=== PATIENT | female | born 1965 | race Two or more races ===

== ENCOUNTER 2022-04-14 15:25 | Outpatient (REF) | payer BC, SELFPAY ==
[2022-04-19 06:23] LABS: HPV mRNA E6/E7 Not Detected (Not Detected)
== END 2022-04-14 15:26 | disposition home or self-care (01) ==
LOC: HO.LNP 15:25
PROVIDERS: Visit Provider Internal Medicine
DX: Z01.419 Encounter for gynecological examination (general) (routine) without abnormal findings (principal); E03.9 Hypothyroidism, unspecified; K13.70 Unspecified lesions of oral mucosa
CPT/HCPCS: 87624; 88142

== ENCOUNTER 2023-01-02 10:54 | Outpatient (AMB) | payer BC, SELFPAY ==
[2023-01-02 11:20] VITALS: BP 110/68; PULSE 86; O2SAT 98; BMI 24.7
--- NOTE | 2023-01-02 11:20 | A.OFFPC_ITS ---
Vital Signs 01/02/23 11:20 Height 5 ft 1 in Weight 131 lb BMI 24.7 BP 110/68 Blood Pressure Location Rt brachial Position Sitting Pulse 86 Pulse Source Pulse Oximeter Pulse Oximetry (%) 98 Oxygen Delivery Method Room Air Intake Visit Reasons: Joint Pains Intake Note: Pt is here today for a sick visit. Pt c/o join pain that is getting worst. Allergies vancomycin Allergy (Severe, Verified 01/02/23 11:23) Rash clindamycin Allergy (Verified 01/02/23 11:23) rash meperidine [From Demerol] Allergy (Verified 01/02/23 11:23) twitching percocet Allergy (Uncoded 01/02/23 11:23) nausea Medication List - Last Reconciled 01/02/23 by Dinorah Dennison MD levothyroxine 50 mcg PO DAILY Tobacco use date assessed: 01/02/23 Dental Screening Dental Screen Date: 01/02/23 Did you have a dental visit in the last 12 months?: Yes Did you have a dental problem in the last 6 months where you did not have access to dental care?: No Was dental information given to patient?: Patient has dentist HPI Joint Pains HPI Details Pt c/o AM pain and stiffness in knees, hands, LBP lasting up to 10 min. Pt exercises 3 times a week. She complains of lower back pain radiating to both hips when walking longer distance. She denies weakness or numbness in extremities PFSH Surgical History H/O colonoscopy H/O total mastectomy of left breast Family History (Updated 01/02/23 @ 11:24 by Puja Pemberton [facility]) Father No problems noted. Mother No problems noted. Social History (Updated 04/14/22 @ 13:42 by Dinorah Dennison MD) Household Members Other:: 2 children, (17. 20) Housing: House Patient Tobacco Use Status: Never used Tobacco e-Cigarette/Vaping Use: Never Used Current occupational status: employed Cognitive needs: No Hearing needs: No Vision needs: Yes Questionnaire Thrive Questionnaire Date Thrive assessed: 04/14/22 AUDIT C Alcohol Use Questionnaire (AUDIT-C) 1. How often do you have a drink containing alcohol?: Never 3. How often do you have six or more drinks on one occasion?: Never Total Score: 0 ANDREY-7 AMB Questionnaire ANDREY-7 Date ANDREY - 7 assessed: 04/14/22 Source: Developed by Drs. Main Lino, Maame Pretty, Cesar Lopez and colleagues, with an educational mckenzie from [employer]. Review of Systems Const All systems reviewed & are unremarkable except as noted in HPI and below Reports no additional complaints Eyes Reports no additional complaints ENT Reports no additional complaints Card Reports no additional complaints Resp Reports no additional complaints GI Reports no additional complaints Reports no additional complaints Physical exam (Primary Care) Vital Signs: Last Vital Signs Pulse 86 01/02/23 11:20 BP 110/68 01/02/23 11:20 Pulse Ox 98 01/02/23 11:20 Oxygen Delivery Method Room Air 01/02/23 11:20 BMI result Body Mass Index 24.7 Tobacco/Smoking Status: Tobacco use Status Tobacco use date assessed 01/02/23 01/02/23 11:25 Patient Tobacco Use Status Never used Tobacco 01/02/23 11:25 e-Cigarette/Vaping Use Never Used 01/02/23 11:25 Thrive Assessment: Date of Thrive Assessment Date Thrive assessed 04/14/22 01/02/23 11:25 Const General: no acute distress Resp Effort & Inspection: normal respiratory effort Auscultation: clear to auscultation bilaterally Cardio Rhythm: regular rhythm Heart sounds: S1 normal heart sound present and S2 normal heart sound present Back/Spine/Pelvis Other: Decreased range of motion lumbar spine, straight leg rising 90 degrees bilateral ly, decreased range of motion both hips and knees no joint swelling erythema or warmth Assessment and Plan Assessment & Plan (1) Lower back pain: Code(s): M54.50 - Low back pain, unspecified Plan: Check L-spine x-ray and patient will schedule appointment for physical therapy in [place] (2) Hip pain, bilateral: Code(s): M25.551 - Pain in right hip; M25.552 - Pain in left hip Plan: Check x-rays of both hips (3) Knee pain, bilateral: Code(s): M25.561 - Pain in right knee; M25.562 - Pain in left knee Plan: Check x-rays of both knees, patient will have a fasting blood work including arthritis workup Orders: Orders Rheumatoid Factor Today M25.50 - Pain in unspecified joint C Reactive Protein Today M25.50 - Pain in unspecified joint XR lumbar spine 2-3V Today M25.551 - Pain in right hip, M25.552 - Pain in left hip, M25.561 - Pain in right knee, M25.562 - Pain in left knee, M54.50 - Low back pain, unspecified PT Evaluation and Treatment Today M54.50 - Low back pain, unspecified TALISHA Reflex Titer and Pattern Today M25.50 - Pain in unspecified joint XR knee standing BI Today M25.551 - Pain in right hip, M25.552 - Pain in left hip, M25.561 - Pain in right knee, M25.562 - Pain in left knee, M54.50 - Low back pain, unspecified XR hip BI w PEL1V Today M25.551 - Pain in right hip, M25.552 - Pain in left hip, M25.561 - Pain in right knee, M25.562 - Pain in left knee, M54.50 - Low back pain, unspecified Medications: Refilled levothyroxine once a week pt takes 2 tablets 50 mcg PO DAILY 100 tabs 3RF Coding Level of Care Code Est Pt Level 3 (07458) Diagnoses Lower back pain M54.50 Hip pain, bilateral M25.551; M25.552 Knee pain, bilateral M25.561; M25.562
== END 2023-01-02 11:51 | disposition home or self-care (01) ==
PROVIDERS: PCP Internal Medicine; Visit Provider Internal Medicine
DX: M54.50 Low back pain, unspecified (principal); M25.551 Pain in right hip; M25.552 Pain in left hip; M25.561 Pain in right knee; M25.562 Pain in left knee
CPT/HCPCS: 99213

== ENCOUNTER 2023-01-02 11:50 | Outpatient (REF) | payer BC, SELFPAY ==
--- NOTE | ~2023-01-02 | XR_ITS ---
EXAMINATION: XR LUMBOSACRAL SPINE CLINICAL INFORMATION: Lower back pain. COMPARISON: None available. TECHNIQUE: Three views of the lumbosacral spine. FINDINGS: The lumbar lordosis is maintained. Minimal grade 1 anterolisthesis of L4 on L5. No acute fracture. No loss of vertebral body height. Mild multilevel loss of intervertebral disc height with small endplate osteophytes. Bilateral facet arthropathy at L4 through S1. No concerning lytic or blastic osseous lesion. No abnormal soft tissue calcification. XR/XR lumbar spine 2-3V IMPRESSION: 1. Minimal grade 1 anterolisthesis of L4 on L5. 2. Mild multilevel degenerative disc disease. Bilateral facet arthropathy at L4 through S1.
--- NOTE | ~2023-01-02 | XR_ITS ---
EXAMINATION: XR KNEE AP STANDING CLINICAL INFORMATION: Bilateral knee pain. COMPARISON: None available. TECHNIQUE: AP standing view of the right and left knee as well as lateral views of the right and left knee. FINDINGS: RIGHT KNEE: No acute fracture or dislocation. No significant joint space narrowing or marginal osteophytes. No osseous erosion. Small superior patellar enthesophyte. No significant joint effusion. LEFT KNEE: No acute fracture or dislocation. No significant joint space narrowing. Tiny patellofemoral marginal osteophytes. No osseous erosion. Small superior patellar enthesophyte. No significant joint effusion. XR/XR knee standing BI IMPRESSION: RIGHT KNEE: No acute osseous abnormality. LEFT KNEE: Minimal patellofemoral arthrosis.
--- NOTE | ~2023-01-02 | XR_ITS ---
EXAMINATION: XR BILATERAL HIPS WITH AP PELVIS CLINICAL INFORMATION: Right hip pain. COMPARISON: None available. TECHNIQUE: AP view of the pelvis as well as AP and frog-leg lateral views of the right and left hips. FINDINGS: No acute fracture or dislocation. Mild bilateral hip joint space narrowing with small acetabular marginal osteophytes. No concerning lytic or blastic osseous lesion. No evidence of avascular necrosis. Phleboliths within the pelvis. XR/XR hip BI w PEL1V IMPRESSION: Mild bilateral hip osteoarthritis.
== END 2023-01-02 11:51 | disposition home or self-care (01) ==
LOC: HO.HMGCX 11:50
PROVIDERS: PCP Internal Medicine; Visit Provider Internal Medicine
DX: M25.562 Pain in left knee (principal); M25.551 Pain in right hip; M25.552 Pain in left hip; M54.50 Low back pain, unspecified
CPT/HCPCS: 72100; 73521; 73565

== ENCOUNTER 2024-05-30 08:17 | Outpatient (REF) | payer SELFPAY ==
--- OUTSIDE RECORDS SUMMARY | 2024-05-30 08:29 | XMS_ITS | Clinical Summary ---
Author Organization [facility] Address [address] [place] [address] Phone Care Team Providers Care Felling Bucking Supervisor Name Role Phone Dinorah Dennison MD Primary Care Provider [phone] Encounters Date Type Department Care Team Description 05/08/2024 2:42 PM EST - 05/08/2024 11:59 PM EST [facility] [address] [id number] Encounter for screening mammogram for breast cancer Discharge Disposition: Home or Self Care from Last 3 Months Surgical History Surgery Date Site/Laterality Comments MASTECTOMY Left NC BREAST REDUCTION 2009 STEREOTACTIC CORE BIOPSY Left Medical History Medical History Date Comments Breast cancer (CMS/HCC) LEFT Family History Medical History Relation Name Comments Breast cancer Father's Sister Relation Name Status Comments Father's Sister Social History Tobacco Use Types Packs/Day Years Used Date Smoking Tobacco: Never Assessed Comments No Sex and Gender Information Value Date Recorded Sex Assigned at Not on file Legal Sex Female 8:39 PM EST Gender Identity Not on file Sexual Orientation Not on file Obstetrics History Para Term AB IAB SAB Ectopic Multiple Livin g Live Births 3 Last Filed Vital Signs Vital Sign Reading Time Taken Comments Blood Pressure - - Pulse - - Temperature - - Respiratory Rate - - Oxygen Saturation - - Inhaled Oxygen Concentration - - Weight 59 kg (130 lb) 05/08/2024 2:48 PM EST Height 154.9 cm (5' 1 ) 05/08/2024 2:48 PM EST Body Mass Index 24.56 05/08/2024 2:48 PM EST Plan of Treatment Health Maintenance Due Date Last Done Comments Cervical Cancer Screening: P ap Smear 1985 Pneumococcal Vaccine: 50+ Years (1 of 1 - PCV) 2014 Zoster Vaccines (1 of 2) 2014 Colorectal Cancer Screening: Colonoscopy 03/15/2022 Depression Screening 03/15/2022 HIV Screening 03/15/2022 Hepatitis C Screening 03/15/2022 Social Influencers of Health Screening 03/15/2022 COVID-19 Vaccine (4 - 2023-2 5 season) 2023 05/30/2021, 12/08/2020, 11/17/2020 Influenza Vaccine (#1) 2023 , 01/29/2019 Breast Cancer Screening 05/08/2026 05/08/2024 DTaP,Tdap,and Td Vaccines (2 - Td or Tdap) 01/12/2028 01/11/2018 RSV Immunization Patients 60 + Years Old (1 - 1-dose 75+ series) 2039 HIB Vaccines Aged Out No longer eligi ble based on patient's age to complete this topic HPV Vaccines Aged Out No longer eligi ble based on patient's age to complete this topic Hepatitis A Vaccines Aged Out No long er eligible based on patient's age to complete this topic Hepatitis B Vaccines Aged Out No long er eligible based on patient's age to complete this topic IPV Vaccines Aged Out No longer eligi ble based on patient's age to complete this topic MMR Vaccines Aged Out No longer eligi ble based on patient's age to complete this topic Meningococcal ACWY Vaccine Aged Out N o longer eligible based on patient's age to complete this topic Meningococcal B Vacine Aged Out No lo nger eligible based on patient's age to complete this topic Pneumococcal Vaccine: Pediatrics (0 to 5 Years) and At-Risk Patients (6 to 64 Years) Aged Out No longer eligible b ased on patient's age to complete this topic RSV Immunization Patients Under 20 months Aged Out No longer eligible b ased on patient's age to complete this topic Varicella Vaccines Aged Out No longer eligible based on patient's age to complete this topic Procedures Procedure Name Priority Date/Time Associated Diagnosis Comments MG MAMMO DIGITAL SCREENING W CHAS RIGHT Routine 05/08/2024 2:58 PM EST Encounter for screening mammogram for breast cancer from Last 3 Months Results * MG Mammo Digital Screening w Chas Right (05/08/2024 2:58 PM EST) Anatomical Region Laterality Modality Breast Right Mammography 05/08/2024 3:23 PM EST Impressions 05/08/2024 3:35 PM EST No evidence of breast malignancy. BI-RADS CATEGORY: 1 - NEGATIVE RECOMMENDATION: Screening right mammogram is recommended in 1 year. Mammo Location: [facility], [address] [place] [address], [id number], . -------- FINAL REPORT -------- Dictated By: Earlene Quinones Dictated Date: 05/08/2024 15:23 ET Assigned Physician: Earlene Quinones Reviewed and Electronically Signed By: Earlene Quinones Signed Date: 05/08/2024 15:35 ET Workstation ID: [id number] Transcribed By: Self Edit Transcribed Date: 05/08/2024 15:23 ET Narrative 05/08/2024 3:35 PM EST CLINICAL: 58 years old, Female, routine annual exam. ??History of left breast malignancy status post mastectomy. ?? COMPARISON: 12/20/2022, 10/10/2021, 06/18/2020 and 02/04/2019 TECHNIQUE: Unilateral right MLO and CC views ??were obtained digitally with 3-D mammogram (digital breast tomosynthesis). Computer-aided detection was utilized in evaluation of this exam (CAD). FINDINGS: There is no evidence of suspicious mass or architectural distortion. ??No worrisome calcifications are evident. ??There has been no significant change from prior exam(s). ?? BREAST DENSITY: C - The breasts are heterogeneously dense which may obscure small masses. Procedure Note Earlene Quinones MD - 05/08/2024 CLINICAL: 58 years old, Female, routine annual exam. History of leftbreast malignancy status post mastectomy. COMPARISON: 12/20/2022, 10/10/2021, 06/18/2020 and 02/04/2019 TECHNIQUE: Unilateral right MLO and CC views were obtained digitally with3-D mammogram (digital breast tomosynthesis). Computer-aided detection wasutilized in evaluation of this exam (CAD). FINDINGS: There is no evidence of suspicious mass or architectural distortion. Noworrisome calcifications are evident. There has been no significantchange from prior exam(s). BREAST DENSITY: C - The breasts are heterogeneously dense which mayobscure small masses. IMPRESSION: No evidence of breast malignancy. BI-RADS CATEGORY: 1 - NEGATIVE RECOMMENDATION: Screening right mammogram is recommended in 1 year. Mammo Location: [facility], [address] [place] [address], [id number], . -------- FINAL REPORT -------- Dictated By: Earlene Quinones Dictated Date: 05/08/2024 15:23 ET Assigned Physician: Earlene Quinones Reviewed and Electronically Signed By: Earlene Quinones Signed Date: 05/08/2024 15:35 ET Workstation ID: [id number] Transcribed By: Self Edit Transcribed Date: 05/08/2024 15:23 ET us Self Referral Sppl IMG BI PROCEDURES Final Resul t from Last 3 [place] [id number] [facility] Care Teams Felling Bucking Supervisor Relationship Specialty Start Date End Date Dinorah Dennison MD [address] [facility] [place] [phone] PCP - General Internal Medicine 05/08/24
--- OUTSIDE RECORDS SUMMARY | 2024-05-30 08:29 | XMS_ITS | Encounter Summary ---
Author Organization [facility] Address [id number] [place] [phone] Care Team Providers Care Electrical Engineer Name Role Phone Dinorah Dennison MD Primary Care Provider [phone] Reason for Referral * Imaging (Routine) - Closed Specialty Diagnoses / Procedures Referred By Manda phillips Referred To Contact Radiology Diagnoses Encounter for screening mammogram for breast cancer Procedures MG Mammo Digital Screening w Chas Right Sppl, Self Referral [facility] Referral ID Status Reason Start Date Expiration Date Visits Re quested Visits Authorized [id number] Closed 05/05/2024 05/05/2025 1 1 * Imaging (Routine) - Closed Specialty Diagnoses / Procedures Referred By Manda t Referred To Contact Radiology Diagnoses Encounter for screening mammogram for breast cancer Procedures MG Mammo Digital Screening w Chas Right Sppl, Self Referral [facility] Referral ID Status Reason Start Date Expiration Date Visits Re quested Visits Authorized [id number] Closed 05/05/2024 05/05/2025 1 1 Reason for Visit * Imaging (Routine) - Closed Specialty Diagnoses / Procedures Referred By Manda t Referred To Contact Radiology Diagnoses Encounter for screening mammogram for breast cancer Procedures MG Mammo Digital Screening w Chas Right Sppl, Self Referral [facility] Referral ID Status Reason Start Date Expiration Date Visits Re quested Visits Authorized [id number] Closed 05/05/2024 05/05/2025 1 1 Encounter Details Date Type Department Care Team (Latest Contact Info) Description 05/08/2024 2:42 PM EST - 05/08/2024 11:59 PM EST Hospital [facility] [address] [phone] Encounter for screening mammogram for breast cancer Discharge Disposition: Home or Self Care Social History Tobacco Use Types Packs/Day Years Used Date Smoking Tobacco: Never Assessed Comments No Sex and Gender Information Value Date Recorded Sex Assigned at Not on file Legal Sex Female 8:39 PM EST Gender Identity Not on file Sexual Orientation Not on file documented as of this encounter Last Filed Vital Signs Vital Sign Reading Time Taken Comments Blood Pressure - - Pulse - - Temperature - - Respiratory Rate - - Oxygen Saturation - - Inhaled Oxygen Concentration - - Weight 59 kg (130 lb) 05/08/2024 2:48 PM EST Height 154.9 cm (5' 1 ) 05/08/2024 2:48 PM EST Body Mass Index 24.56 05/08/2024 2:48 PM EST documented in this encounter Discharge Disposition Disposition Code Departure Means Destination Home or Self Care documented in this encounter Plan of Treatment Not on file documented as of this encounter Procedures Procedure Name Priority Date/Time Associated Diagnosis Comments MG MAMMO DIGITAL SCREENING W CHAS RIGHT Routine 05/08/2024 2:58 PM EST Encounter for screening mammogram for breast cancer documented in this encounter Results * MG Mammo Digital Screening w Chas Right (05/08/2024 2:58 PM EST) Anatomical Region Laterality Modality Breast Right Mammography 05/08/2024 3:23 PM EST Impressions 05/08/2024 3:35 PM EST No evidence of breast malignancy. BI-RADS CATEGORY: 1 - NEGATIVE RECOMMENDATION: Screening right mammogram is recommended in 1 year. Mammo Location: [facility], [address] [place] [address], [id number], . -------- FINAL REPORT -------- Dictated By: Earlene Quinones Dictated Date: 05/08/2024 15:23 ET Assigned Physician: Earlene Quinones Reviewed and Electronically Signed By: Earlene Quinones Signed Date: 05/08/2024 15:35 ET Workstation ID: [id number] Transcribed By: Self Edit Transcribed Date: 05/08/2024 [...] year. Mammo Location: [facility], [address] [place] [address], [facility], . -------- FINAL REPORT -------- Dictated By: Earlene Quinones Dictated Date: 05/08/2024 15:23 ET Assigned Physician: Earlene Quinones Reviewed and Electronically Signed By: Earlene Quinones Signed Date: 05/08/2024 15:35 ET Workstation ID: [id number] Transcribed By: Self Edit Transcribed Date: 05/08/2024 15:23 ET us Self Referral Sppl IMG BI PROCEDURES Final Resul t documented in this encounter Visit Diagnoses Diagnosis Encounter for screening mammogram for breast cancer documented in this encounter Care Teams Electrical Engineer Relationship Specialty Start Date End Date Dinorah Dennison MD [address] [place] [phone] PCP - General Internal Medicine 05/08/24 documented as of this encounter
[2024-05-30 11:04] LABS: MANUAL DIFF FLAG NO
[2024-05-30 11:12] LABS: Basophils Percent Auto 0.5 % (0-2); Eosinophils Absolute Auto 0.1 X10*3/uL (0.0-0.4); Eosinophils Percent Auto 1.4 % (0-4); Hematocrit 38.5 % (37.0-47.0); Hemoglobin 12.7 g/dl (12.0-16.0); Imm Gran Abs Auto 0.01 X10*3/uL (0.00-0.03); Imm Gran Pct Auto 0.2 % (0.0-0.4); Lymphocytes Absolute Auto 2.2 X10*3/uL (1.2-4.9); Lymphocytes Percent Auto 52.8 % (20-40); Mean Corpuscular Hemoglobin 30.5 pg (27.0-33.0); Mean Corpuscular Volume 92.5 fL (80.0-98.0); Mean Platelet Volume 9.6 fL (9.4-12.3); Monocytes Absolute Auto 0.3 X10*3/uL (0.1-1.2); Monocytes Percent Auto 7.9 % (2-11); Neutrophils Absolute Auto 1.6 x10*3/uL (2.0-8.3); Neutrophils Percent Auto 37.2 % (45-73); Platelet Count 309 X10*3/uL (160-400); Red Blood Count 4.16 X10*6/uL (4.20-5.50); Red Cell Distribution Width 12.1 % (11.0-16.0); White Blood Count 4.2 X10*3/uL (4.8-10.8)
[2024-05-30 11:43] LABS: Alanine Aminotransferase 24 U/L (0-31); Albumin Level 4.1 g/dL (3.5-5.0); Alkaline Phosphatase 55 U/L (39-117); Anion Gap 13 (12-20); Aspartate Amino Transferase 26 U/L (5-31); Bilirubin Total 0.6 mg/dL (0.0-1.0); Blood Urea Nitrogen 19 mg/dL (9-16); Calcium 9.5 mg/dL (8.4-10.2); Carbon Dioxide 28 mmol/L (22-29); Chloride 102 mmol/L (96-108); Cholesterol 241 mg/dL (<200); Estimated Glomerular Filt Rate > 60; Glucose Fasting 90 mg/dL (60-99); HDL Cholesterol 69 mg/dL (>40); LDL Cholesterol Calculated 151 mg/dL (<100); Potassium 3.9 mmol/L (3.3-5.1); Sodium 139 mmol/L (135-145); Total Protein 7.6 g/dL (6.5-8.0); Triglycerides 106 mg/dL (<150)
== END 2024-05-30 08:18 | disposition home or self-care (01) ==
LOC: HO.WFDLDS 08:17
PROVIDERS: Visit Provider Internal Medicine
DX: E78.5 Hyperlipidemia, unspecified (principal); E03.9 Hypothyroidism, unspecified
CPT/HCPCS: 36415; 80053; 80061; 84443; 85025

== ENCOUNTER 2024-06-03 13:56 | Outpatient (AMB) | payer OTHER, SELFPAY ==
[2024-06-03 13:58] VITALS: BP 108/70; PULSE 86; RESP 18; TEMP 37.1; O2SAT 96; BMI 25.9
--- NOTE | 2024-06-03 13:58 | MHC.PC.OV ---
Vital Signs 06/03/24 13:58 Height 5 ft 1 in Weight 137 lb BMI 25.9 BP 108/70 Blood Pressure Location Rt brachial Position Sitting Respiration 18 Pulse 86 Pulse Source Pulse Oximeter Temp 98.7 F Temp Source Oral Pulse Oximetry (%) 96 Oxygen Delivery Method Room Air Intake Visit Reasons: PE Intake Note: Pt is here today for PE. Allergies vancomycin Allergy (Severe, Verified 06/03/24 14:00) Rash clindamycin Allergy (Verified 06/03/24 14:00) rash meperidine [From Demerol] Allergy (Verified 06/03/24 14:00) twitching percocet Allergy (Uncoded 06/03/24 14:00) nausea Medication List - Last Reconciled 06/03/24 by Dinorah Dennison MD levothyroxine 50 mcg PO DAILY Tobacco use date assessed: 06/03/24 Dental Screening Dental Screen Date: 06/03/24 Did you have a dental visit in the last 12 months?: Yes Did you have a dental problem in the last 6 months where you did not have access to dental care?: No Was dental information given to patient?: Patient has dentist HPI PE HPI Details Pt presents for PE. PFSH Surgical History H/O total mastectomy of left breast H/O colonoscopy Family History Father No problems noted. Mother No problems noted. Social History Household Members Other:: 2 children, (17. 20) Housing: House Patient Tobacco Use Status: Never used Tobacco e-Cigarette/Vaping Use: Never Used service: No Current occupational status: employed Cognitive needs: No Hearing needs: No Vision needs: Yes Questionnaire PHQ-9 Over the last 2 weeks, how often have you been bothered by any of the following problems? 1. Little interest or pleasure in doing things: not at all 2. Feeling down, depressed, or hopeless: not at all 3. Trouble falling or staying asleep, or sleeping too much: not at all 4. Feeling tired or having little energy: not at all 5. Poor appetite or overeating: not at all 6. Feeling bad about yourself - or that you are a failure or have let yourself or your family down: not at all 7. Trouble concentrating on things, such as reading the newspaper or watching television: not at all 8. Moving or speaking so slowly that other people could have noticed. Or the opposite - being so fidgety or restless that you have been moving around a lot more than usual: not at all 9. Thoughts that you would be better off or of hurting yourself in some way: not at all Total score: 0 Depression Screening Interpretation: Negative Depression Screening Done: Yes 84981 - PHQ-9 Billing: Yes Source: Developed by Drs. Main Lino, Maame Pretty, Cesar Lopez and colleagues, with an educational mckenzie from [employer]. Thrive Questionnaire Date Thrive assessed: 06/03/24 I am a: Patient What is your living situation today?: I have a steady place to live Within the past 12 months, did the food you bought not last and you didn't have the money to get more?: Never true Within the past 12 months, did you worry whether your food would run out before you got money to buy more?: Never true Do you have trouble paying for medicines?: No Do you have trouble getting transportation to medical appointments?: No Do you have trouble paying your heating and electricity bill?: No Do you have trouble taking care of your child, family member or friend?: No Do you have trouble with day-to-day activities such as bathing, preparing meals, shopping, managing finances, etc.?: No Are you currently unemployed and looking for a job?: No Are you interested in more education?: No Please select the resources that you would like help with: None Currently or been in a relationship where the following occur: No concerns reported THRIVE Score: 0 AUDIT C Alcohol Use Questionnaire (AUDIT-C) 1. How often do you have a drink containing alcohol?: Never 3. How often do you have six or more drinks on one occasion?: Never Total Score: 0 ANDREY-7 AMB Questionnaire ANDREY-7 Date ANDREY - 7 assessed: 06/03/24 Feeling nervous, anxious, or on edge: 0 = Not at all Not being able to stop or control worryin = Not at all Worrying too much about different things: 0 = Not at all Trouble relaxin = Not at all Being so restless that it is hard to sit still: 0 = Not at all Becoming easily annoyed or irritable: 0 = Not at all Feeling afraid as if something awful might happen: 0 = Not at all Total ANDREY-7 score (0-4 normal; 5-9 mild; 10-14 moderate; 15-21 severe): 0 Source: Developed by Drs. Main Lino, Maame Pretty, Cesar Lopez and colleagues, with an educational mckenzie from [employer]. ANDREY-7 Assessment Billing ANDREY-7 Assessment Tool: ANDREY-7 Assessment 76377 Review of Systems Const All systems reviewed & are unremarkable except as noted in HPI and below Reports no additional complaints Eyes Reports no additional complaints ENT Reports no additional complaints Card Reports no additional complaints Resp Reports no additional complaints GI Reports no additional complaints Reports no additional complaints Musc Reports no additional complaints Physical exam (Primary Care) Vital Signs: Last Vital Signs Temp 98.7 F 06/03/24 13:58 Pulse 86 06/03/24 13:58 Resp 18 06/03/24 13:58 BP 108/70 06/03/24 13:58 Pulse Ox 96 06/03/24 13:58 Oxygen Delivery Method Room Air 06/03/24 13:58 BMI result Body Mass Index 25.9 Tobacco/Smoking Status: Tobacco use Status Tobacco use date assessed 06/03/24 06/03/24 14:05 Patient Tobacco Use Status Never used Tobacco 06/03/24 14:05 e-Cigarette/Vaping Use Never Used 06/03/24 13:58 PHQ-9: PHQ-9 Score PHQ-9: Total score 0 06/03/24 14:05 Depression Screening Interpretation: Negative Thrive Assessment: Date of Thrive Assessment Date Thrive assessed 06/03/24 06/03/24 14:05 Currently or been in a relationship where the following occur: No concerns reported Const General: no acute distress HENMT Head: Yes normal to inspection Ears: hearing grossly normal bilaterally Face and sinus: Yes normal facial exam Mouth: Normal oral and palatal mucosa present Throat: Yes posterior oropharynx normal Eyes General: appearance normal, both eyes and all related structures Neck Neck: Yes no lymphadenopathy and Yes supple Resp Effort & Inspection: normal respiratory effort Auscultation: clear to auscultation bilaterally Cardio Rhythm: regular rhythm Heart sounds: S1 normal heart sound present and S2 normal heart sound present Coding Level of Care Code Est Pt Prev Care 40-64y(64684) Diagnoses Hyperlipidemia E78.5 Annual physical exam Z00.00 Postmenopausal Z78.0 Hypothyroid E03.9 Additional Codes ANDREY-7 Assessment Billing - ANDREY-7 Assessment Tool: ANDREY-7 Assessment 52412 ([id number]) PHQ-9 - 04375 - PHQ-9 Billing: Yes ([id number]) Assessment & Plan Assessment & Plan (1) Hyperlipidemia: Code(s): E78.5 - Hyperlipidemia, unspecified Category: Medical Plan: Low-cholesterol diet increase physical activity discussed with the patient she will have a repeat lipid profile in 6 months (2) Annual physical exam: Code(s): Z00.00 - Encounter for general adult medical examination without abnormal findings Category: Medical Plan: Well-balanced diet regular physical activity discussed with the patient she is up-to-date with the mammogram at [facility] had negative Pap smear in [address]22 and [address] GI Dr[address] Davalos to check when she is due for a repeat colonoscopy (3) Postmenopausal: Code(s): Z78.0 - Asymptomatic menopausal state Category: Medical Plan: Check DEXA continue vitamin-D supplement and regular exercise (4) Hypothyroid: Code(s): E03.9 - Hypothyroidism, unspecified Category: Medical Plan: Continue levothyroxine Orders: Orders XR DEXA axial skeleton Today Z00.00 - Encounter for general adult medical examination without abnormal findings, Z78.0 - Asymptomatic menopausal state Lipid Panel 1 Year E03.9 - Hypothyroidism, unspecified, E78.5 - Hyperlipidemia, unspecified, Z00.00 - Encounter for general adult medical examination without abnormal findings TSH reflex Free T4 1 Year E03.9 - Hypothyroidism, unspecified, E78.5 - Hyperlipidemia, unspecified, Z00.00 - Encounter for general adult medical examination without abnormal findings Lipid Panel 6 Months E78.5 - Hyperlipidemia, unspecified Comprehensive [place]. Panel Fast 1 Year E03.9 - Hypothyroidism, unspecified, E78.5 - Hyperlipidemia, unspecified, Z00.00 - Encounter for general adult medical examination without abnormal findings Complete Blood Count Auto Diff 1 Year E03.9 - Hypothyroidism, unspecified, E78.5 - Hyperlipidemia, unspecified, Z00.00 - Encounter for general adult medical examination without abnormal findings Vitamin D 25-OH Total 1 Year E03.9 - Hypothyroidism, unspecified, E78.5 - Hyperlipidemia, unspecified, Z00.00 - Encounter for general adult medical examination without abnormal findings UA w Microscopic 1 Year E03.9 - Hypothyroidism, unspecified, E78.5 - Hyperlipidemia, unspecified, Z00.00 - Encounter for general adult medical examination without abnormal findings Medications: Changed From levothyroxine once a week pt takes 2 tablets 50 mcg PO DAILY 36 tabs 4RF To levothyroxine 1 tabl qd 6 days a week, and 2 tabl a day one day a week 50 mcg PO DAILY 104 tabs 4RF
--- OUTSIDE RECORDS SUMMARY | 2024-06-03 17:36 | XMS_ITS | Encounter Summary ---
Author Organization [facility] Address [id number] [place] [id number] Care Team Providers Care Track Layer Head Name Role Phone Dinorah Dennison MD Primary Care Provider [phone] Reason for Referral * Imaging (Routine) - Closed Specialty Diagnoses / Procedures Referred By Manda phillips Referred To Contact Radiology Diagnoses Encounter for screening mammogram for breast cancer Procedures MG Mammo Digital Screening w Chas Right Sppl, Self Referral [facility] Referral ID Status Reason Start Date Expiration Date Visits Re quested Visits Authorized [id number] Closed 05/05/2024 05/05/2025 1 1 * Imaging (Routine) - Closed Specialty Diagnoses / Procedures Referred By Manda t Referred To Contact Radiology Diagnoses Encounter for screening mammogram for breast cancer Procedures MG Mammo Digital Screening w Chas Right Sppl, Self Referral [facility] Referral ID Status Reason Start Date Expiration Date Visits Re quested Visits Authorized [id number] Closed 05/05/2024 05/05/2025 1 1 Reason for Visit * Imaging (Routine) - Closed Specialty Diagnoses / Procedures Referred By Manda t Referred To Contact Radiology Diagnoses Encounter for screening mammogram for breast cancer Procedures MG Mammo Digital Screening w Chas Right Sppl, Self Referral [facility] Referral ID Status Reason Start Date Expiration Date Visits Re quested Visits Authorized [id number] Closed 05/05/2024 05/05/2025 1 1 Encounter Details Date Type Department Care Team (Latest Contact Info) Description 05/08/2024 2:42 PM EST - 05/08/2024 11:59 PM EST Hospital [facility]counter [facility] [address] [phone] Encounter for screening mammogram for breast cancer [...] year. Mammo Location: [facility], [address] [place] [address], [address], . -------- FINAL REPORT -------- Dictated By: Earlene Quinones Dictated Date: 05/08/2024 15:23 ET Assigned Physician: Earlene Quinones Reviewed and Electronically Signed By: Earlene Quinones Signed Date: 05/08/2024 15:35 ET Workstation ID: [id number] Transcribed By: Self Edit Transcribed Date: 05/08/2024 [...] year. Mammo Location: [facility], [address] [place] [address], [facility], . -------- FINAL REPORT -------- Dictated By: Earlene Quinones Dictated Date: 05/08/2024 15:23 ET Assigned Physician: Earlene Quinones Reviewed and Electronically Signed By: Earlene Quinones Signed Date: 05/08/2024 15:35 ET Workstation ID: [id number] Transcribed By: Self Edit Transcribed Date: 05/08/2024 15:23 ET us Self Referral Sppl IMG BI PROCEDURES Final Resul t documented in this encounter Visit Diagnoses Diagnosis Encounter for screening mammogram for breast cancer documented in this encounter Care Teams Track Layer Head Relationship Specialty Start Date End Date Dinorah Dennison MD [address] [place] [address] PCP - General Internal Medicine 05/08/24 documented as of this encounter
--- OUTSIDE RECORDS SUMMARY | 2024-06-03 17:36 | XMS_ITS | Clinical Summary ---
Author Organization [facility] Address [address] [place] [address] Phone Care Team Providers Care Meat Team Member Name Role Phone Dinorah Dennison MD Primary Care Provider [phone] Encounters Date Type Department Care Team Description 05/08/2024 2:42 PM EST - 05/08/2024 11:59 PM EST Hospital [facility]counter [facility] [address] [address] Encounter for screening mammogram for breast cancer Discharge Disposition: Home or Self Care from Last 3 Months Surgical History Surgery Date Site/Laterality Comments MASTECTOMY Left ME BREAST REDUCTION 2009 STEREOTACTIC CORE BIOPSY Left [...] year. Mammo Location: [facility], [address] [place] [address], [address], . -------- FINAL REPORT -------- Dictated By: Earlene Quinones Dictated Date: 05/08/2024 15:23 ET Assigned Physician: Earlene Quinones Reviewed and Electronically Signed By: Earlene Quinones Signed Date: 05/08/2024 15:35 ET Workstation ID: [id number] Transcribed By: Self Edit Transcribed Date: 05/08/2024 [...] year. Mammo Location: [facility], [address] [place] [address], [id number], . -------- FINAL REPORT -------- Dictated By: Earlene Quinones Dictated Date: 05/08/2024 15:23 ET Assigned Physician: Earlene Quinones Reviewed and Electronically Signed By: Earlene Quinones Signed Date: 05/08/2024 15:35 ET Workstation ID: [id number] Transcribed By: Self Edit Transcribed Date: 05/08/2024 15:23 ET us Self Referral Sppl IMG BI PROCEDURES Final Resul t from Last [place] [id number] [facility] Care Teams Meat Team Member Relationship Specialty Start Date End Date Dinorah Dennison MD [address] [facility] [place] [id number] PCP - General Internal Medicine 05/08/24
== END 2024-06-03 14:55 | disposition home or self-care (01) ==
PROVIDERS: PCP Internal Medicine; Visit Provider Internal Medicine
DX: E78.5 Hyperlipidemia, unspecified (principal); Z00.00 Encounter for general adult medical examination without abnormal findings; Z78.0 Asymptomatic menopausal state; E03.9 Hypothyroidism, unspecified

== ENCOUNTER → 2024-06-03 13:56 | Outpatient (BNVA) | payer OTHER, SELFPAY | PROVIDERS: PCP Internal Medicine; Visit Provider Internal Medicine | DX: Z00.00 Encounter for general adult medical examination without abnormal findings (principal); E78.5 Hyperlipidemia, unspecified; E03.9 Hypothyroidism, unspecified; Z78.0 Asymptomatic menopausal state; Z79.899 Other long term (current) drug therapy | CPT/HCPCS: 96127 ==

== ENCOUNTER 2024-10-07 10:34 | Outpatient (AMB) | payer OTHER, SELFPAY ==
--- NOTE | 2024-10-07 10:41 | A.OFFPC_ITS ---
Vital Signs 10/07/24 10:44 Height 5 ft 1 in Weight 145 lb BMI 27.4 BP 114/76 Blood Pressure Location Rt brachial Position Sitting Respiration 18 Pulse 80 Pulse Source Pulse Oximeter Temp 98.4 F Temp Source Oral Pulse Oximetry (%) 95 Oxygen Delivery Method Room Air Intake Visit Reasons: new breast lump Intake Note: Pt is here today for a sick visit. Pt c/o lump in her R breast. Allergies vancomycin Allergy (Severe, Verified 10/07/24 10:46) Rash clindamycin Allergy (Verified 10/07/24 10:46) rash meperidine (From Demerol) Allergy (Verified 10/07/24 10:46) twitching percocet Allergy (Uncoded 10/07/24 10:46) nausea Medication List - Last Reconciled 10/07/24 by Dinorah Dennison MD levothyroxine 50 mcg PO DAILY Tobacco use date assessed: 10/07/24 Dental Screening Dental Screen Date: 06/03/24 HPI new breast lump HPI Details Patient found a lump on her right breast at 06:00 in the nipple area a few days ago. She had a negative right breast mammogram 2 months ago. Patient has a history of left breast CA 16 years ago status post mastectomy [facility] Medical History (Updated 10/07/24 @ 11:26 by Dinorah Dennison MD) Breast lump on right side at 6 o'clock position Hyperglycemia Hypothyroid Postmenopausal Surgical History (Updated 10/07/24 @ 11:21 by Dinorah Dennison MD) H/O total mastectomy of left breast H/O colonoscopy Family History Father No problems noted. Mother No problems noted. Social History Household Members Other:: 2 children, (17. 20) Housing: House Patient Tobacco Use Status: Never used Tobacco e-Cigarette/Vaping Use: Never Used service: No Current occupational status: employed Cognitive needs: No Hearing needs: No Vision needs: Yes Questionnaire Thrive Questionnaire Date Thrive assessed: 06/03/24 I am a: Patient What is your living situation today?: I have a steady place to live Within the past 12 months, did the food you bought not last and you didn't have the money to get more?: Never true Within the past 12 months, did you worry whether your food would run out before you got money to buy more?: Never true Do you have trouble paying for medicines?: No Do you have trouble getting transportation to medical appointments?: No Do you have trouble paying your heating and electricity bill?: No Do you have trouble taking care of your child, family member or friend?: No Do you have trouble with day-to-day activities such as bathing, preparing meals, shopping, managing finances, etc.?: No Are you currently unemployed and looking for a job?: No Are you interested in more education?: No Please select the resources that you would like help with: None Currently or been in a relationship where the following occur: No concerns reported THRIVE Score: 0 AUDIT C Alcohol Use Questionnaire (AUDIT-C) 3. How often do you have six or more drinks on one occasion?: Never Total Score: 0 ANDREY-7 AMB Questionnaire ANDREY-7 Date ANDREY - 7 assessed: 06/03/24 Source: Developed by Drs. Main Lino, Maame Pretty, Cesar Lopez and colleagues, with an educational mckenzie from [employer]. Review of Systems Const All systems reviewed & are unremarkable except as noted in HPI and below ENT Reports no additional complaints Card Reports no additional complaints Resp Reports no additional complaints GI Reports no additional complaints Reports no additional complaints Physical exam (Primary Care) Vital Signs: Last Vital Signs Temp 98.4 F 10/07/24 10:44 Pulse 80 10/07/24 10:44 Resp 18 10/07/24 10:44 BP 114/76 10/07/24 10:44 Pulse Ox 95 10/07/24 10:44 Oxygen Delivery Method Room Air 10/07/24 10:44 BMI result Body Mass Index 27.4 Tobacco/Smoking Status: Tobacco use Status Tobacco use date assessed 10/07/24 10/07/24 10:48 Patient Tobacco Use Status Never used Tobacco 10/07/24 10:42 e-Cigarette/Vaping Use Never Used 10/07/24 10:42 Thrive Assessment: Date of Thrive Assessment Date Thrive assessed 06/03/24 10/07/24 10:42 Currently or been in a relationship where the following occur: No concerns reported Const General: no acute distress Eyes General: appearance normal, both eyes and all related structures Chest Breast/axilla palpation: no axillary lymphadenopathy and abnormal palpation of the breast (Right breast 06:00 1 cm from the nipple, 0.5 cm firm mobile mass nontender) Resp Effort & Inspection: normal respiratory effort Auscultation: clear to auscultation bilaterally Cardio Rhythm: regular rhythm Heart sounds: S1 normal heart sound present and S2 normal heart sound present Coding Level of Care Code Est Pt Level 3 (23435) Diagnoses Postmenopausal Z78.0 Breast lump on right side at 6 o'clock position N63.15 Assessment & Plan Assessment & Plan (1) Postmenopausal: Code(s): Z78.0 - Asymptomatic menopausal state Category: Medical Plan: Patient will schedule DEXA at [facility] (2) Breast lump on right side at 6 o'clock position: Code(s): N63.15 - Unspecified lump in the right breast, overlapping quadrants Category: Medical Plan: Referred for a stat diagnostic mammogram and ultrasound Orders: Orders MM diagnostic mammo unilat RT Today N63.15 - Unspecified lump in the right breast, overlapping quadrants, Z90.12 - Acquired absence of left breast and nipple US breast RT limited Today N63.15 - Unspecified lump in the right breast, overlapping quadrants, Z90.12 - Acquired absence of left breast and nipple Lipid Panel Today E78.5 - Hyperlipidemia, unspecified Hemoglobin A1c Today R73.9 - Hyperglycemia, unspecified XR DEXA axial skeleton Today Z78.0 - Asymptomatic menopausal state
[2024-10-07 10:44] VITALS: BP 114/76; PULSE 80; RESP 18; TEMP 36.9; O2SAT 95; BMI 27.4
--- OUTSIDE RECORDS SUMMARY | 2024-10-07 11:33 | XMS_ITS | Clinical Summary ---
Author Organization [facility] Address [address] [place] [address] Phone Care Team Providers Care Hospital Nursing Assistant Name Role Phone Dinorah Dennison MD Primary Care Provider [phone] Surgical History Surgery Date Site/Laterality Comments MASTECTOMY Left NE BREAST REDUCTION 2009 STEREOTACTIC CORE BIOPSY Left Medical History Medical History Date Comments Breast cancer (CMS/HCC V24, CMS/HCC V28) LEFT Family History Medical History Relation Name [...] Influencers of Health Screening 03/15/2022 COVID-19 Vaccine (2023-2 5 season) 2023 05/30/2021, 12/08/2020, 11/17/2020 Influenza Vaccine (#1) 2024 , 01/29/2019 Breast Cancer Screening 05/08/2026 05/08/2024 DTaP,Tdap,and Td Vaccines (2 - Td or Tdap) 01/12/2028 01/11/2018 RSV Immunization Adult Patients (1 - 1-dose 75+ series) 2039 HIB [...] age to complete this topic Meningococcal B Vaccine Aged Out No l onger eligible based on patient's age to complete [...] for breast cancer from Last 3 Months or Most Recently Relevant to Health Maintenance Results * MG Mammo Digital Screening w Chas Right (05/08/2024 2:58 PM EST) Anatomical Region Laterality Modality Breast Right Mammography 05/08/2024 3:23 PM EST Impressions 05/08/2024 3:35 PM EST No evidence of breast malignancy. BI-RADS CATEGORY: 1 - NEGATIVE RECOMMENDATION: Screening right mammogram is recommended in 1 year. Mammo Location: [facility], [address] [place] [address], [address], . -------- FINAL REPORT -------- Dictated By: Earlene Quinones Dictated Date: 05/08/2024 15:23 ET Assigned Physician: Earlene Quinones Reviewed and Electronically Signed By: Earlene Quinones Signed Date: 05/08/2024 15:35 ET Workstation ID: [id number] Transcribed By: Self Edit Transcribed Date: 05/08/2024 15:23 ET Narrative 05/08/2024 3:35 PM EST CLINICAL: 58 years old, Female, routine annual exam. History of left breast malignancy status post mastectomy. COMPARISON: 12/20/2022, 10/10/2021, 06/18/2020 and 02/04/2019 TECHNIQUE: Unilateral right MLO and CC views were obtained digitally with 3-D mammogram (digital breast tomosynthesis). Computer-aided detection was utilized in evaluation of this exam (CAD). FINDINGS: There is no evidence of suspicious mass or architectural distortion. No worrisome calcifications are evident. There has been no significant change from prior exam(s). BREAST DENSITY: C - [...] Mammo Location: [facility], [address] [place] [address], [id number], . -------- FINAL REPORT -------- Dictated By: Earlene Quinones Dictated Date: 05/08/2024 15:23 ET Assigned Physician: Earlene Quinones Reviewed and Electronically Signed By: Earlene Quinones Signed Date: 05/08/2024 15:35 ET Workstation ID: [id number] Transcribed By: Self Edit Transcribed Date: 05/08/2024 15:23 ET us Self Referral Sppl IMG BI PROCEDURES Final Resul t from Last 3 Months or Most Recently Relevant to Health Maintenance Insurance [employer] [address] [facility] [address] [place] [address] Care Teams Hospital Nursing Assistant Relationship Specialty Start Date End Date Dinorah Dennison MD [address] [place] [address] PCP - General Internal Medicine 05/08/24
== END 2024-10-07 11:30 | disposition home or self-care (01) ==
LOC: HO.HMCC 10:37
PROVIDERS: PCP Internal Medicine; Visit Provider Internal Medicine
DX: Z78.0 Asymptomatic menopausal state (principal); N63.15 Unspecified lump in the right breast, overlapping quadrants